=== PATIENT | female | born 1990 ===

== ENCOUNTER 2017-01-13 12:58 | Emergency (ER) | payer OTHER, SELFPAY ==
[2017-01-13 12:58] VITALS: BMI 22.0
[2017-01-13 13:08] VITALS: BP 127/63; PULSE 88; RESP 18; TEMP 98.3; O2SAT 100
[2017-01-13] MEDS ORDERED: Oxycodone/Acetaminophen 5/325 mg Tab PO STA (14:01)
[2017-01-13] MEDS ORDERED: Oxycodone/Acetaminophen 5/325 mg Tab ONE (14:03)
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
== END 2017-01-13 16:06 | disposition home or self-care (01) ==
LOC: H.ER 12:58
DX: M54.5 Low back pain (principal)